=== PATIENT | female | born 1990 | race Caucasian/White ===

== ENCOUNTER 2018-04-15 21:51 | Emergency (ER) | payer BC ==
[~2018-04-15] VITALS: Ht 162.6 cm; Wt 72.6 kg
[2018-04-15 21:55] VITALS: BP_SYST 135
--- NOTE | 2018-04-15 22:00 | NUR ---
Patient to ER bed 6 to gown for evaluation. Side rails up.
--- NOTE | 2018-04-15 22:02 | NUR ---
Pt came to the ED for vaginal bleeding. Pt reports to be 7 weeks and has bleeding for the 1.5 hours. Pt states that bleeding is more than spotting. Last menstual period was 02/26/2018. Reports nausea but denies vomiting. Denies ABD pain or other complaints. No other injuries noted. Will cont. to monitor.
--- NOTE | 2018-04-15 22:10 | NUR ---
ER at bedside examining patient.
--- NOTE | 2018-04-15 23:00 | NUR ---
Ultrasound took pt via wheelchair. Tolerated well. Will cont. to monitor.
[2018-04-15 23:04] LABS: CALCIUM 9.3 mg/dL (8.4-11.0); CREATININE 0.6 mg/dL (0.55-1.30); POTASSIUM 3.4 mmol/L (3.5-5.1)
[2018-04-15 23:12] LABS: BILIRUBIN,URINE NEGATIVE (NEGATIVE); BLOOD, URINE 3+ (NEGATIVE); CLARITY/URINE CLEAR (CLEAR); COLOR,URINE YELLOW (YELLOW); GLUCOSE,URINE NEGATIVE (NEGATIVE); KETONES,URINE NEGATIVE (NEGATIVE); LEUKOCYTE ESTERASE ,URINE TRACE (NEGATIVE); NITRITE, URINE NEGATIVE (NEGATIVE); PROTEIN URINE NEGATIVE (NEGATIVE); UROBILINOGEN,URINE 0.2 (0.2-1.0)
[2018-04-15 23:22] LABS: WHITE BLOOD COUNT (AUTO) 8.3 K/uL (4.8-10.8)
[2018-04-15 23:22] LABS: BACTERIA,URINE FEW /HPF (None Seen)
[2018-04-15 23:23] LABS: BASOPHILS % (AUTO) 0.4 % (0.0-2.0); EOSINOPHILS % (AUTO) 1.5 % (0.0-4.0); HEMATOCRIT 37.2 % (36-48); HEMOGLOBIN 12.7 g/dL (12.0-16.0); LYMPHOCYTES # (AUTO) 2.2 K/uL (1.0-5.5); MEAN CORPUSCULAR HEMOGLOBIN 30 pg (27-31); MEAN CORPUSCULAR HGB CONC 34 % (32-36); MEAN CORPUSCULAR VOLUME 89 fL (79.0-98.0); MONOCYTES % (AUTO) 11.8 % (1.7-9.3); NEUTROPHILS # (AUTO) 4.9 K/uL (1.8-7.7); NEUTROPHILS % (AUTO) 59.3 % (40.0-70.0); PLATELET COUNT (AUTO) 328 K/uL (130-430); RED BLOOD CELL COUNT(AUTO) 4.19 MIL/uL (4.2-6.2); RED CELL DISTRIBUTION WIDTH 12.5 % (9.0-15.0)
[2018-04-15 23:24] LABS: EOSINOPHILS # (AUTO) 0.1 K/uL (0.0-0.4)
[2018-04-15 23:31] LABS: ALBUMIN 3.4 g/dL (3.4-4.8); TOTAL BILIRUBIN 0.2 mg/dL (0.0-1.0)
--- NOTE | 2018-04-15 23:45 | NUR ---
Dr. Penny at bedside updating pt on condition
[2018-04-15 23:51] VITALS: BP_SYST 135
--- NOTE | 2018-04-15 23:51 | NUR ---
Patient given written and verbal discharge instructions and verbalizes understanding. ER MD Dr. Penny discussed with patient the results and treatment provided. Patient in stable condition. ID arm band removed. Rx of Macrodantin given. Patient educated on pain management and to follow up with PMD within 2-3 days. Pain Scale 0/10. Opportunity for questions provided and answered. Medication side effect fact sheet provided.
== END 2018-04-15 23:51 | disposition home or self-care (01) ==
LOC: SED 21:51
DX: O20.0 Threatened abortion (principal); O23.41 Unspecified infection of urinary tract in pregnancy, first trimester; Z3A.01 Less than 8 weeks gestation of pregnancy
CPT/HCPCS: 36415; 76801; 76817; 80053; 81000-TC; 81025; 84702-TC; 85025; 99284